=== PATIENT | male | born 1970 | race African-American/Black ===

== ENCOUNTER 2018-11-13 10:00 | Emergency (ER) | payer MEDICAID ==
[~2018-11-13] VITALS: Ht 175.3 cm; Wt 78.5 kg
[2018-11-13 10:17] VITALS: BP 135/78
[2018-11-13] MEDS ORDERED: methylPREDNISolone SOD SUCC 125 MG/2 ML VL IM ONE (11:15)
== END 2018-11-13 11:48 | disposition home or self-care (01) ==
LOC: ER 10:00
DX: H00.024 Hordeolum internum left upper eyelid (principal); T78.40XA Allergy, unspecified, initial encounter; X58.XXXA Exposure to other specified factors, initial encounter
CPT/HCPCS: 96372; 99283; J2930